=== PATIENT | female | born 1975 | race African-American/Black ===

== ENCOUNTER 2016-10-22 17:51 | Emergency (ER) | payer MEDICAID ==
[~2016-10-22] VITALS: Ht 157.5 cm; Wt 63.5 kg
[2016-10-22] MEDS ORDERED: NKM (17:58)
--- NOTE | 2016-10-22 18:36 | Emergency Room Report ---
History of Present Illness General Chief Complaint: Abdominal Pain Source: Patient Present Illness HPI 41-year-old female presents emergency department complaining of lower abdominal pain times one week. Patient reports burning sensation as well as distended sensation intermittently with on occasion being located only on the right side of the abdomen. Patient also reports right-sided low back pain that does not radiate. pt currently rates her pain as 6/10 in severity. Patient states that she missed her period she then week and half ago and today began spotting. Patient is worried about . Patient denies nausea, vomiting, fevers, chills. Denies constipation or diarrhea. Pt reports Urgency and intermittent dysuria, denies frequency and hematuria. pt. also reports some cramping sensation. Denies CP, Palpitations, LOC, AMS, dizziness, Changes in Vision, Sensation, paresthesias, or a sudden severe headache. Allergies: Coded Allergies: No Known Allergies (Unverified , 10/22/16) Patient History Past Medical History: see triage record Past Surgical History: none Pertinent Family History: none Last Menstrual Period: 09/13/2016 Reviewed Nursing Documentation: PMH: Agreed, PSxH: Agreed Nursing Documentation-PMH Past Medical History: No Stated History Review of Systems All Other Systems: negative except mentioned in HPI Physical Exam Vital Signs Date Time Temp Pulse Resp B/P Pulse Ox O2 Delivery O2 Flow Rate FiO2 10/22/16 17:53 98.2 94 16 136/93 99 Room Air Sp02 EP Interpretation: reviewed, normal General Appearance: no apparent distress, alert, GCS 15, non-toxic Head: normocephalic, atraumatic Eyes: bilateral eye PERRL, bilateral eye normal inspection ENT: hearing grossly normal, normal pharynx, no angioedema, normal voice Neck: full range of motion, supple/symm/no masses Respiratory: lungs clear, normal breath sounds, speaking full sentences Cardiovascular #1: regular rate, rhythm, no edema Gastrointestinal: normal bowel sounds, non tender, soft, no guarding, no rebound, other - Negative [place] signs, Negative MacBurney's sign, Negative Rosvigns Sign, Negative Psoas, No Peritoneal signs. Rectal: deferred Genitourinary: normal inspection, no CVA tenderness, adnexa normal Musculoskeletal: back normal, gait/station normal, normal range of motion, non- tender Neurologic: alert, oriented x3, responsive, motor strength/tone normal, sensory intact, speech normal Psychiatric: judgement/insight normal, memory normal, mood/affect normal Skin: normal color, no rash, warm/dry, well hydrated Lymphatic: no adenopathy Medical Decision Making PA Attestation Dr. Melgar is my supervising Physician whom patient management has been discussed with. Diagnostic Impression: Primary Impression: Urinary tract infection Qualified Codes: N30.01 - Acute cystitis with hematuria Additional Impressions: Cystitis Missed menses ER Course 41-year-old female presents emergency department complaining of lower abdominal pain times one week. Patient reports burning sensation as well as distended sensation intermittently with on occasion being located only on the right side of the abdomen. Patient also reports right-sided low back pain that does not radiate. pt currently rates her pain as 6/10 in severity. Patient states that she missed her period she then week and half ago and today began spotting. Patient is worried about . Patient denies nausea, vomiting, fevers, chills. Denies constipation or diarrhea. Pt reports frequency, denies dysuria or hematuria. pt. also reports some cramping sensation. Ddx considered but are not limited to , UTi , Diverticulitis, acute appy, diarrhea,UC, PUD, GE, pancreatitis, gallstones, Pyelo, STI, Stone, Cystitis Vital signs: are WNL, pt. is afebrile H&PE are most consistent with UTI ORDERS: -CBC: unremarkable -CMP: unremarkable , electrolytes ok -Lipase: WNL - UA labs are attached : moderate bacteria, and leukocyte esterase consistent with UTI, RBC's and blood noted however pt. has vaginal spotting. -Urine Hcg: Negative. ED INTERVENTIONS: None required at this time. -d/w pt. results of blood work, and that rather benign PE does not suggest further work up. -d/w pt. to follow up with OBGYN for irregular menses/spotting. -d/w pt. to follow up with PCP, or return to ED with worsening or new symptoms. DISCHARGE: At this time pt. is stable for d/c to home. Will provide printed patient care instructions, and any necessary prescriptions. Care plan and follow up instructions have been discussed with the patient prior to discharge. Labs Test 10/22/16 18:00 10/22/16 18:26 Urine Color Pale yellow Urine Appearance Slightly cloudy Urine pH 5 (4.5-8.0) Urine Specific [place] 1.020 (1.005-1.035) Urine Protein 2+ (NEGATIVE) Urine Glucose (UA) Negative (NEGATIVE) Urine Ketones 1+ (NEGATIVE) Urine Occult Blood 5+ (NEGATIVE) Urine Nitrite Negative (NEGATIVE) Urine Bilirubin Negative (NEGATIVE) Urine Urobilinogen Normal MG/DL (0.0-1.0) Urine Leukocyte Esterase 1+ (NEGATIVE) Urine RBC 10-15 /HPF (0 - 2) Urine WBC 0-2 /HPF (0 - 2) Urine Squamous Epithelial Cells Many /LPF (NONE/OCC) Urine Bacteria Moderate /HPF (NONE) Urine HCG, Qualitative Negative White Blood Count 9.1 K/UL (4.8-10.8) Red Blood Count 4.10 M/UL (4.20-5.40) Hemoglobin 14.5 G/DL (12.0-16.0) Hematocrit 42.4 % (37.0-47.0) Mean Corpuscular Volume 103 FL (80-99) Mean Corpuscular Hemoglobin 35.5 PG (27.0-31.0) Mean Corpuscular Hemoglobin Concent 34.3 G/DL (32.0-36.0) Red Cell Distribution Width 13.0 % (11.6-14.8) Platelet Count 268 K/UL (150-450) Mean Platelet Volume 6.8 FL (6.5-10.1) Neutrophils (%) (Auto) 50.8 % (45.0-75.0) Lymphocytes (%) (Auto) 36.4 % (20.0-45.0) Monocytes (%) (Auto) 9.9 % (1.0-10.0) Eosinophils (%) (Auto) 1.7 % (0.0-3.0) Basophils (%) (Auto) 1.3 % (0.0-2.0) Sodium Level 140 mEQ/L (135-145) Potassium Level 3.8 mEQ/L (3.4-4.9) Chloride Level 97 mEQ/L (98-107) Carbon Dioxide Level 26 mEQ/L (20-30) Anion Gap 17 (5-15) Blood Urea Nitrogen 9 mg/dL (7-23) Creatinine 0.8 mg/dL (0.5-0.9) Estimat Glomerular Filtration Rate > 60 mL/min (>60) Glucose Level 119 mg/dL (74-106) Calcium Level 9.6 mg/dL (8.6-10.2) Total Bilirubin 0.3 mg/dL (0.0-1.2) Aspartate Amino Transf (AST/SGOT) 36 U/L (5-40) Alanine Aminotransferase (ALT/SGPT) 27 U/L (3-33) Alkaline Phosphatase 62 U/L (35-104) Total Protein 7.6 g/dL (6.6-8.7) Albumin 4.5 g/dL (3.5-5.2) Globulin 3.1 g/dL Albumin/Globulin Ratio 1.4 (1.0-2.7) Lipase 41 U/L (< 60) Human Chorionic Gonadotropin, Quant < 1 mIU/mL Last Vital Signs Date Time Temp Pulse Resp B/P Pulse Ox O2 Delivery O2 Flow Rate FiO2 10/22/16 17:53 98.2 94 16 136/93 99 Room Air Disposition: HOME, SELF-CARE Condition: Stable Scripts Ibuprofen* (MOTRIN*) 600 Mg Tablet 600 MG ORAL THREE TIMES A DAY, #30 TAB 0 Refills Prov: Li Mcbride 10/22/16 Phenazopyridine Hcl* (PYRIDIUM*) 100 Mg Tablet 100 MG ORAL THREE TIMES A DAY for 5 Days, #15 TAB Prov: Li Mcbride 10/22/16 Nitrofurantoin Monohyd/M-Cryst* (MACROBID 100 MG*) 100 Mg Capsule 100 MG ORAL EVERY 12 HOURS for 5 Days, #10 CAP Prov: Li Mcbride 10/22/16 Referrals: [facility],REFERRING (PCP) Patient Instructions: Dysfunctional Uterine Bleeding, Urinary Tract Infection Additional Instructions: Take medications as directed. Follow up with PCP and OBGYN in 3-5 days Return sooner to ED if new symptoms occur, or current symptoms become worse. - Please note that this Emergency Department Report was dictated using [employer] sous chef technology software, occasionally this can lead to erroneous entry secondary to interpretation by the dictation equipment. Li Mcbride Oct 22, 2016 18:36
[2016-10-22 18:56] LABS: BASOPHILS % (AUTO) 1.3 % (0.0-2.0); EOSINOPHILS % (AUTO) 1.7 % (0.0-3.0); LYMPHOCYTES % (AUTO) 36.4 % (20.0-45.0); MEAN CORPUSCULAR HEMOGLOBIN 35.5 PG (27.0-31.0); MEAN CORPUSCULAR HGB CONC 34.3 G/DL (32.0-36.0); MEAN CORPUSCULAR VOLUME 103 FL (80-99); MEAN PLATELET VOLUME 6.8 FL (6.5-10.1); MONOCYTES % (AUTO) 9.9 % (1.0-10.0); NEUTROPHILS % (AUTO) 50.8 % (45.0-75.0); PLATELET COUNT 268 K/UL (150-450); WHITE BLOOD COUNT 9.1 K/UL (4.8-10.8)
[2016-10-22 19:15] LABS: APPEARANCE,URINE SLIGHTLY CLOUDY; KETONES,URINE 1+ (NEGATIVE); LEUKOCYTE ESTERASE ,URINE 1+ (NEGATIVE); NITRITE,URINE NEGATIVE (NEGATIVE); PH,URINE 5 (4.5-8.0); PROTEIN,URINE 2+ (NEGATIVE); UROBILINOGEN,URINE NORMAL MG/DL (0.0-1.0)
[2016-10-22 19:19] LABS: ALANINE AMINOTRANSFERASE 27 U/L (3-33); ALBUMIN/GLOBULIN RATIO 1.4 (1.0-2.7); ANION GAP 17 (5-15); ASPARTATE AMINO TRANSFERASE 36 U/L (5-40); CALCIUM 9.6 mg/dL (8.6-10.2); CARBON DIOXIDE 26 mEQ/L (20-30); CHLORIDE 97 mEQ/L (98-107); CREATININE 0.8 mg/dL (0.5-0.9); GLOMERULAR FILTRATION RATE > 60 mL/min (>60); HEMOLYSIS 5; LIPASE 41 U/L (< 60); POTASSIUM 3.8 mEQ/L (3.4-4.9); SODIUM 140 mEQ/L (135-145); TOTAL PROTEIN 7.6 g/dL (6.6-8.7)
[2016-10-22 19:25] LABS: BACTERIA,URINE MODERATE /HPF; SQUAMOUS EPITHELIAL CELL,UR MANY /LPF (NONE/OCC); WBC,URINE 0-2 /HPF (0 - 2)
[2016-10-22] MEDS ORDERED: PHENAZOPYRIDIN100 MG ORAL (19:35)
[2016-10-22] MEDS ORDERED: IBUPROFEN600 MG ORAL (19:35)
[2016-10-22] MEDS ORDERED: NITROFURANTOIN100 M2 ORAL (19:35)
[2016-10-22 19:47] VITALS: BP 132/93
== END 2016-10-22 19:48 | disposition home or self-care (01) ==
LOC: EDBD 17:51 → EMR 18:16
DX: N39.0 Urinary tract infection, site not specified (principal); N30.90 Cystitis, unspecified without hematuria; N91.2 Amenorrhea, unspecified
CPT/HCPCS: 36415; 80053; 81003; 81025; 83690; 84702; 85025; 87086; 87181; 99284

== ENCOUNTER 2020-06-13 20:47 | Emergency (ER) | payer OTHER, MEDICAID ==
[~2020-06-13] VITALS: Ht 165.1 cm; Wt 68.0 kg
[~2020-06-13 20:47] MED LIST: IBUPROFEN600 MG ORAL; NITROFURANTOIN100 M2 ORAL; NKM; PHENAZOPYRIDIN100 MG ORAL
[2020-06-13 21:01] VITALS: BP 137/92
--- NOTE | 2020-06-13 21:02 | Emergency Room Report ---
History of Present Illness General Chief Complaint: Eye Problems Present Illness HPI Patient is a 45-year-old female presents for increased discomfort to her right eyelid. Reports this is been present for several months. Reportedly called an advice nurse who recommended she come to the hospital. Patient had not been having any fever or cough. I had minimal change in size of area of concern. Allergies: Coded Allergies: No Known Allergies (Unverified , 10/22/16) Patient History Past Medical History: see triage record Reviewed Nursing Documentation: PMH: Agreed; PSxH: Agreed Review of Systems All Other Systems: negative except mentioned in HPI Physical Exam General Appearance: well appearing, no apparent distress, alert, GCS 15 Head: normocephalic, atraumatic ENT: hearing grossly normal, normal voice, other - Right eyelid mobile lesion to the upper lid no erythema or discharge noted Neck: full range of motion, supple Respiratory: chest non-tender, no respiratory distress, speaking full sentences Cardiovascular #1: normal inspection Gastrointestinal: normal inspection Musculoskeletal: no calf tenderness Neurologic: alert, motor strength/tone normal, marker delivery III-XII nml as tested, oriented x3, normal gait Psychiatric: mood/affect normal Skin: no rash Medical Decision Making Diagnostic Impression: Primary Impression: Eyelid cyst ER Course Patient presented for right eyelid lesion. Differential diagnosis include was not limited to lipoma, cyst, stye among others. Patient has a benign exam and does not appear to require any imaging or laboratory testing at this time. Patient does not appear to have any evidence of infection at this time. This appears to be a fixed eyelid lesion. Patient was advised to follow-up with ophthalmology for recheck. No acute intervention is required at this time. This medical record is generated with [employer] gis technician software. There may be some gis technician discrepancies related to use of this software Status: improved Disposition: HOME, SELF-CARE Condition: Stable Shree Morgan MD Jun 13, 2020 21:02
--- NOTE | 2020-06-13 21:03 | NUR ---
Nurse Note: Pt walked in c/o bump on RT eyelid. PT stated she noticed the bump since December 2019; has gotten bigger. Denies loss of vision. Pt stated pain and causes headaches. No puss and drainage
[2020-06-13 21:06] VITALS: BP 137/92
--- NOTE | 2020-06-13 21:06 | NUR ---
ED Nurse Note: Pt cleared by health care Provider for discharge. DC instructions/prescription was given and explained to pt and verbalized understanding of teachings. Instructed to follow up with PCP. All medical deviecs such as ID band removed. Pt is AAO x4, ambulatory and left with all personal belongings.
== END 2020-06-13 21:06 | disposition home or self-care (01) ==
LOC: EMR 21:00
DX: H02.821 Cysts of right upper eyelid (principal)
CPT/HCPCS: 99281